=== PATIENT | female | born 1980 | race Caucasian/White ===

== ENCOUNTER 2017-04-15 02:59 | Emergency (ER) | payer MEDICAID, OTHER ==
[~2017-04-15] VITALS: Ht 162.6 cm; Wt 59.0 kg
[~2017-04-15 02:59] MED LIST: CALC1TAB17; DIPH25CA83; FOLI-43; FOLIC ACID; FURO20TA4; HYDR200T35; LOSA25TA12; LOSARTAN; NIFE60TA18; P20; PLAQUENIL; PREDNISONE; SILDENAFIL; SULF1TAB48; TRAM50TA3
[2017-04-15] MEDS ORDERED: SODIUM CHLORIDE 0.9% 1,000 ML IV ONE (03:52)
[2017-04-15 04:12] LABS: BASOPHILS % 0.9 % (0.0-2.0); EOSINOPHILS % 2.1 % (0.0-5.0); HEMATOCRIT. 30.1 % (36.0-48.0); HEMOGLOBIN. 9.9 g/dL (12.0-16.0); LYMPHOCYTES % 23.4 % (20.0-50.0); MEAN CORPUSCULAR HEMOGLOBIN 29.1 pg (28.0-32.0); MEAN CORPUSCULAR HGB CONC 32.9 g/dL (31.0-37.0); MEAN CORPUSCULAR VOLUME 88.6 fL (81.0-99.0); MEAN PLATELET VOLUME 8.9 fl (7.4-10.4); MONOCYTES % 9.5 % (2.0-8.0); NEUTROPHILS % 64.1 % (40.0-76.0); PLATELET 157 x1000/uL (130-400); RED CELL DISTRIBUTION WIDTH 12.5 % (11.6-14.6); WHITE BLOOD COUNT 3.8 x1000/uL (4.5-11.0)
[2017-04-15 04:24] LABS: ALANINE AMINOTRANSFERASE 14 IU/L (13-61); ALBUMIN 3.2 g/dL (3.4-5.0); ANION GAP 12; CALCIUM 8.1 mg/dL (8.5-10.1); CARBON DIOXIDE 24 mEq/L (21-32); CHLORIDE 106 mEq/L (98-107); INDEX HEMOLYSI 1 (1-3); INDEX ICTERIC 1 (1-4); INDEX LIPEMIC 1 (1-3); UREA NITROGEN BLOOD 18 mg/dL (7-21); eGFR > 60 mL/min (>60)
[2017-04-15 07:02] VITALS: BP 109/63
== END 2017-04-15 07:13 | disposition home or self-care (01) ==
LOC: ER 03:00
DX: R53.1 Weakness (principal); R11.0 Nausea; R42 Dizziness and giddiness; H53.2 Diplopia; I10 Essential (primary) hypertension; M32.9 Systemic lupus erythematosus, unspecified; F12.10 Cannabis abuse, uncomplicated; Z90.710 Acquired absence of both cervix and uterus; Z98.890 Other specified postprocedural states; Z88.8 Allergy status to other drugs, medicaments and biological substances
CPT/HCPCS: 36415; 70450; 71010; 80053; 85025; 93005; 96360; 96361; 99285; J7030; Z7610

== ENCOUNTER 2019-09-20 08:20 | Inpatient (IN) | payer MEDICAID ==
[~2019-09-20] VITALS: Ht 157.5 cm; Wt 59.4 kg
[~2019-09-20 08:20] MED LIST changes: -LOSA25TA12; +LOSA25TA26
[2019-09-20 10:17] LABS: EOSINOPHILS % 1.5 % (0.0-5.0); HEMATOCRIT. 25.2 % (36.0-48.0); HEMOGLOBIN. 7.8 g/dL (12.0-16.0); LYMPHOCYTES % 24.4 % (20.0-50.0); MEAN CORPUSCULAR HEMOGLOBIN 21.2 pg (28.0-32.0); MEAN CORPUSCULAR VOLUME 68.7 fL (81.0-99.0); MEAN PLATELET VOLUME 8.3 fl (7.4-10.4); MONOCYTES % 7.2 % (2.0-8.0); NEUTROPHILS % 65.9 % (40.0-76.0); PLATELET 264 x1000/uL (130-400); RED BLOOD CELL COUNT 3.66 mill/uL (4.2-5.4); RED CELL DISTRIBUTION WIDTH 19.2 % (11.6-14.6)
[2019-09-20 10:24] LABS: CHLORIDE 111 mEq/L (98-107)
[2019-09-20 10:25] LABS: HCG SCREEN NEGATIVE
[2019-09-20 11:07] LABS: PLATELET ESTIMATE NORMAL
[2019-09-20] MEDS ORDERED: ONDANSETRON HCL 4MG/2ML INJ IV PRN (14:30)
[2019-09-20] MEDS ORDERED: DOCUSATE SODIUM 100MG CAPSULE PO PRN (14:30)
[2019-09-20] MEDS ORDERED: ACETAMINOPHEN 325MG TABLET PO PRN (14:30)
[2019-09-20] MEDS ORDERED: MAGNESIUM/ALUMINUM HYDROXIDE/SIMETHICONE 30ML UDC PO PRN (14:30)
[2019-09-20] MEDS ORDERED: DIPHENHYDRAMINE 50MG/ML VIAL IV PRN (14:30)
[2019-09-20] MEDS ORDERED: GUAIFENESIN 200MG/10ML SUGAR FREE UDC PO PRN (14:30)
[2019-09-20] MEDS ORDERED: IPRATROPIUM/ALBUTEROL 0.5-3(2.5)MG/3ML NEB HHN PRN (14:30)
[2019-09-20] MEDS ORDERED: CLONIDINE 0.1MG TABLET PO PRN (14:30)
[2019-09-20 17:16] LABS: TOTAL IRON BINDING CAPACITY 362 ug/dL (250-450)
[2019-09-20 18:00] VITALS: BP 136/68
[2019-09-20] MEDS: FUROSEMIDE 40MG/4ML VIAL IVP SCH (18:30)
[2019-09-20] MEDS: CIPROFLOXACIN 0.3% OPHTH SOLN 2.5ML BOTHEYE SCH ×2 (18:30→21:27)
[2019-09-20 20:00] VITALS: BP 120/78
[2019-09-20] MEDS: ENOXAPARIN 40MG/0.4ML SYR SUBCUT SCH (21:27)
[2019-09-20] MEDS: SILDENAFIL CITRATE 20MG TABLET PO SCH (21:28)
[2019-09-21] VITALS: BP 122/79
[2019-09-21 04:00] VITALS: BP 110/59
[2019-09-21] MEDS: SILDENAFIL CITRATE 20MG TABLET PO SCH ×3 (05:56→21:25)
[2019-09-21 07:14] LABS: CHLORIDE 108 mEq/L (98-107)
[2019-09-21 07:23] LABS: BASOPHILS % 0.8 % (0.0-2.0); EOSINOPHILS % 2.3 % (0.0-5.0); HEMOGLOBIN. 8.4 g/dL (12.0-16.0); LDL CHOLESTEROL 66 mg/dL (5-100); LYMPHOCYTES % 18.7 % (20.0-50.0); MEAN CORPUSCULAR HEMOGLOBIN 21.3 pg (28.0-32.0); MEAN CORPUSCULAR VOLUME 68.4 fL (81.0-99.0); MEAN PLATELET VOLUME 8.7 fl (7.4-10.4); NEUTROPHILS % 70.2 % (40.0-76.0); PLATELET 252 x1000/uL (130-400); RED BLOOD CELL COUNT 3.95 mill/uL (4.2-5.4); RED CELL DISTRIBUTION WIDTH 19.1 % (11.6-14.6)
[2019-09-21 07:24] LABS: CREATINE KINASE MB FRACTION < 1.0 ng/mL (0.5-3.6)
[2019-09-21 07:25] LABS: CREATINE KINASE 23 IU/L (26-192); HDL CHOLESTEROL 34 mg/dL (40-59)
[2019-09-21 08:00] VITALS: BP 115/78
[2019-09-21] MEDS: FUROSEMIDE 40MG/4ML VIAL IVP SCH (08:39)
[2019-09-21] MEDS: CIPROFLOXACIN 0.3% OPHTH SOLN 2.5ML BOTHEYE SCH ×4 (08:39→21:25)
[2019-09-21 12:00] VITALS: BP 103/68
[2019-09-21 16:00] VITALS: BP 98/56
[2019-09-21] MEDS ORDERED: PANTOPRAZOLE 40MG DR TABLET PO SCH (17:15)
[2019-09-21] MEDS: POLYETHYLENE GLYCOL 3350 (17GM) 1 DOSE PACK PO SCH (17:31)
[2019-09-21] MEDS: HYDROXYCHLOROQUINE SULFATE 200MG TABLET PO SCH (17:32)
[2019-09-21] MEDS: PREDNISONE 20MG TABLET PO SCH (17:32)
[2019-09-21] MEDS ORDERED: POLYVINYL ALCOHOL OPHTH DROPS 15ML BOTHEYE SCH (19:00)
[2019-09-21 20:00] VITALS: BP 101/61
[2019-09-21] MEDS: ENOXAPARIN 40MG/0.4ML SYR SUBCUT SCH (20:53)
[2019-09-21] MEDS: IPRATROPIUM/ALBUTEROL 0.5-3(2.5)MG/3ML NEB HHN SCH (20:53)
[2019-09-21] MEDS: POLYVINYL ALCOHOL OPHTH DROPS 15ML BOTHEYE SCH (20:53)
[2019-09-21] MEDS: SULFAMETHOXAZOLE/TRIMETHOPRIM 800/160MG TABLET PO SCH (21:25)
[2019-09-21] MEDS: LETAIRIS 10MG TABLET PO SCH (21:25)
[2019-09-21 22:42] LABS: *BARBITURATES SCREEN URINE NEGATIVE (NEGATIVE); *BENZODIAZEPINES SCREEN URINE NEGATIVE (NEGATIVE); *COCAINE SCREEN URINE NEGATIVE (NEGATIVE); CANNABINOID URINE SCREEN NEGATIVE (NEGATIVE); PHENCYCLIDINE URINE SCREEN NEGATIVE (NEGATIVE)
[2019-09-21 22:43] LABS: METHADONE URINE SCREEN NEGATIVE (NEGATIVE); OPIATES URINE SCREEN NEGATIVE (NEGATIVE)
[2019-09-21 22:44] LABS: *AMPHETAMINES SCREEN URINE PRESUMTIVE POSITIVE (NEGATIVE)
[2019-09-22] VITALS: BP 105/68
[2019-09-22] MEDS: POLYVINYL ALCOHOL OPHTH DROPS 15ML BOTHEYE SCH ×4 (00:21→18:51)
[2019-09-22] MEDS: IPRATROPIUM/ALBUTEROL 0.5-3(2.5)MG/3ML NEB HHN SCH ×4 (02:00→21:05)
[2019-09-22 04:00] VITALS: BP 107/69
[2019-09-22] MEDS: SILDENAFIL CITRATE 20MG TABLET PO SCH ×3 (06:12→20:55)
[2019-09-22] MEDS: PANTOPRAZOLE 40MG DR TABLET PO SCH (06:12)
[2019-09-22 08:00] VITALS: BP 97/45
[2019-09-22] MEDS: POLYETHYLENE GLYCOL 3350 (17GM) 1 DOSE PACK PO SCH (09:00)
[2019-09-22 10:37] LABS: BASOPHILS % 0.2 % (0.0-2.0); EOSINOPHILS % 0.1 % (0.0-5.0); HEMOGLOBIN. 7.9 g/dL (12.0-16.0); LYMPHOCYTES % 23.9 % (20.0-50.0); MEAN CORPUSCULAR HEMOGLOBIN 21.1 pg (28.0-32.0); MEAN CORPUSCULAR VOLUME 69.1 fL (81.0-99.0); MEAN PLATELET VOLUME 9.2 fl (7.4-10.4); MONOCYTES % 3.8 % (2.0-8.0); PLATELET 259 x1000/uL (130-400); RED BLOOD CELL COUNT 3.77 mill/uL (4.2-5.4); RED CELL DISTRIBUTION WIDTH 19.1 % (11.6-14.6)
[2019-09-22 10:43] LABS: CHLORIDE 106 mEq/L (98-107)
[2019-09-22] MEDS: HYDROXYCHLOROQUINE SULFATE 200MG TABLET PO SCH ×2 (10:53→18:50)
[2019-09-22] MEDS: PREDNISONE 20MG TABLET PO SCH (10:53)
[2019-09-22] MEDS: FUROSEMIDE 40MG/4ML VIAL IVP SCH (10:54)
[2019-09-22] MEDS: LETAIRIS 10MG TABLET PO SCH (10:54)
[2019-09-22] MEDS: CIPROFLOXACIN 0.3% OPHTH SOLN 2.5ML BOTHEYE SCH ×4 (10:56→20:56)
[2019-09-22 12:00] VITALS: BP 111/62
[2019-09-22] MEDS ORDERED: FERR-71 MT (13:55)
[2019-09-22] MEDS: SULFAMETHOXAZOLE/TRIMETHOPRIM 800/160MG TABLET PO SCH ×2 (14:39→20:55)
[2019-09-22 16:00] VITALS: BP 101/49
[2019-09-22 20:43] VITALS: BP 112/63
[2019-09-22] MEDS: ENOXAPARIN 40MG/0.4ML SYR SUBCUT SCH (20:55)
[2019-09-23] VITALS: BP 109/67
[2019-09-23] MEDS: POLYVINYL ALCOHOL OPHTH DROPS 15ML BOTHEYE SCH ×4 (00:27→17:19)
[2019-09-23] MEDS: IPRATROPIUM/ALBUTEROL 0.5-3(2.5)MG/3ML NEB HHN SCH ×2 (01:51→09:30)
[2019-09-23 04:00] VITALS: BP 108/73
[2019-09-23] MEDS: PANTOPRAZOLE 40MG DR TABLET PO SCH (06:11)
[2019-09-23] MEDS: SILDENAFIL CITRATE 20MG TABLET PO SCH ×2 (06:11→15:23)
[2019-09-23 08:00] VITALS: BP 100/64
[2019-09-23] MEDS: PREDNISONE 20MG TABLET PO SCH (09:44)
[2019-09-23] MEDS: HYDROXYCHLOROQUINE SULFATE 200MG TABLET PO SCH ×2 (09:44→17:22)
[2019-09-23] MEDS: FUROSEMIDE 40MG/4ML VIAL IVP SCH (09:44)
[2019-09-23] MEDS: SULFAMETHOXAZOLE/TRIMETHOPRIM 800/160MG TABLET PO SCH (09:44)
[2019-09-23] MEDS: LETAIRIS 10MG TABLET PO SCH (09:44)
[2019-09-23] MEDS: CIPROFLOXACIN 0.3% OPHTH SOLN 2.5ML BOTHEYE SCH ×3 (09:45→17:19)
[2019-09-23] MEDS: POLYETHYLENE GLYCOL 3350 (17GM) 1 DOSE PACK PO SCH (09:45)
[2019-09-23 12:00] VITALS: BP 117/70
== END 2019-09-23 19:25 | disposition home or self-care (01) | DRG 812 ==
LOC: ER 08:20 → 6WST 12:45 → ENRESERV 14:11
PROVIDERS: ADMIT Internal Medicine; ATTEND Internal Medicine
DX: T43.621A Poisoning by amphetamines, accidental (unintentional), initial encounter (principal); J96.20 Acute and chronic respiratory failure, unspecified whether with hypoxia or hypercapnia; I50.23 Acute on chronic systolic (congestive) heart failure; I27.20 Pulmonary hypertension, unspecified; M32.9 Systemic lupus erythematosus, unspecified; J68.0 Bronchitis and pneumonitis due to chemicals, gases, fumes and vapors; Y92.89 Other specified places as the place of occurrence of the external cause; Z99.81 Dependence on supplemental oxygen; H54.62 Unqualified visual loss, left eye, normal vision right eye; F15.10 Other stimulant abuse, uncomplicated; F12.10 Cannabis abuse, uncomplicated; K59.00 Constipation, unspecified; D63.8 Anemia in other chronic diseases classified elsewhere; I11.0 Hypertensive heart disease with heart failure; K21.9 Gastro-esophageal reflux disease without esophagitis; Z90.710 Acquired absence of both cervix and uterus; Z98.891 History of uterine scar from previous surgery
CPT/HCPCS: 36415; 71045; 80048; 80061; 80305; 82270; 82550; 82553; 82728; 83540; 83550; 83735; 83880; 84100; 84443; 84484; 84703; 85044; 85379; 85651; 93005; 93306; 93970; 99285; J1650; J1940; J7512; J7620

== ENCOUNTER 2019-12-05 20:45 | Emergency (ER) | payer MEDICAID ==
[~2019-12-05] VITALS: Ht 157.5 cm; Wt 62.0 kg
[~2019-12-05 20:45] MED LIST changes: +FERR-71 MT
[2019-12-05] MEDS ORDERED: IBUPROFEN 600MG TABLET PO STA (22:11)
[2019-12-05 23:31] LABS: BASOPHILS % 0.5 % (0.0-2.0); HEMATOCRIT. 26.6 % (36.0-48.0); HEMOGLOBIN. 8.5 g/dL (12.0-16.0); MEAN PLATELET VOLUME 8.4 fl (7.4-10.4); NEUTROPHILS % 65.5 % (40.0-76.0); PLATELET 221 x1000/uL (130-400); RED BLOOD CELL COUNT 3.41 mill/uL (4.2-5.4); RED CELL DISTRIBUTION WIDTH 24.5 % (11.6-14.6)
[2019-12-05 23:35] LABS: CHLORIDE 113 mEq/L (98-107)
[2019-12-05 23:36] LABS: D-DIMER 1.73 mg/L FEU (<0.50); PROTHROMBIN TIME 9.8 sec (9.6-11.0)
[2019-12-05 23:37] LABS: HCG SCREEN NEGATIVE
[2019-12-06] MEDS ORDERED: FUROSEMIDE 20MG/2ML VIAL IVP ONE (00:15)
[2019-12-06] MEDS ORDERED: ASPIRIN 325MG EC TABLET PO ONE (00:15)
[2019-12-06] MEDS ORDERED: CLONIDINE 0.1MG TABLET PO PRN (00:45)
[2019-12-06] MEDS ORDERED: ONDANSETRON HCL 4MG/2ML INJ IV PRN (00:45)
[2019-12-06] MEDS ORDERED: IPRATROPIUM/ALBUTEROL 0.5-3(2.5)MG/3ML NEB NEB PRN (00:45)
[2019-12-06] MEDS ORDERED: HYDROCODONE/ACETAMINOPHEN 5/325MG TABLET PO PRN (00:45)
[2019-12-06] MEDS ORDERED: DOCUSATE SODIUM 100MG CAPSULE PO PRN (00:45)
[2019-12-06] MEDS ORDERED: ACETAMINOPHEN 325MG TABLET PO PRN (00:45)
[2019-12-06] MEDS ORDERED: MORPHINE SULFATE 2 MG/ML CPJ (NOT FOR IM USE) IV PRN (00:45)
[2019-12-06] MEDS ORDERED: MAGNESIUM/ALUMINUM HYDROXIDE/SIMETHICONE 30ML UDC PO PRN (00:45)
[2019-12-06] MEDS ORDERED: GUAIFENESIN 200MG/10ML SUGAR FREE UDC PO PRN (00:45)
[2019-12-06 00:49] LABS: PLATELET ESTIMATE NORMAL
[2019-12-06 01:38] LABS: *BARBITURATES SCREEN URINE NEGATIVE (NEGATIVE); *BENZODIAZEPINES SCREEN URINE NEGATIVE (NEGATIVE); *COCAINE SCREEN URINE NEGATIVE (NEGATIVE); METHADONE URINE SCREEN NEGATIVE (NEGATIVE)
[2019-12-06 01:39] LABS: CANNABINOID URINE SCREEN NEGATIVE (NEGATIVE); OPIATES URINE SCREEN NEGATIVE (NEGATIVE); PHENCYCLIDINE URINE SCREEN NEGATIVE (NEGATIVE)
[2019-12-06 01:43] LABS: *AMPHETAMINES SCREEN URINE PRESUMTIVE POSITIVE (NEGATIVE)
[2019-12-06] MEDS ORDERED: IOHEXOL-350 100 ML BOTTLE ONE (03:04)
[2019-12-06 07:45] VITALS: BP 107/74
[2019-12-06] MEDS ORDERED: ASPIRIN 81MG EC TABLET PO SCH (09:00)
[2019-12-06] MEDS ORDERED: FUROSEMIDE 40MG/4ML VIAL IV SCH (09:00)
== END 2019-12-06 09:33 | disposition left against medical advice (07) ==
LOC: ER 20:45 → EDBEDREQ 12-06 00:11 → EDBEDREQTM 12-06 00:11 → ENRESERV 12-06 08:54 → CANRESERV 12-06 08:54 → ER 12-06 09:33 → CANBEDREQ 12-06 16:18
DX: I11.0 Hypertensive heart disease with heart failure (principal); I50.9 Heart failure, unspecified; Z98.890 Other specified postprocedural states; Z90.710 Acquired absence of both cervix and uterus; F12.10 Cannabis abuse, uncomplicated; F15.10 Other stimulant abuse, uncomplicated; I24.9 Acute ischemic heart disease, unspecified; M79.89 Other specified soft tissue disorders; D64.9 Anemia, unspecified; Z79.899 Other long term (current) drug therapy; Z88.8 Allergy status to other drugs, medicaments and biological substances
CPT/HCPCS: 36415; 71045; 71275; 80053; 80305; 82550; 83880; 84484; 84703; 85025; 85379; 85610; 93005; 93970; 96374; 99284; J1940; Q9967; Z7610

== ENCOUNTER 2021-05-05 09:26 | Emergency (ER) | payer MEDICAID ==
[~2021-05-05] VITALS: Ht 157.5 cm; Wt 56.7 kg
[2021-05-05 09:27] VITALS: BP 132/81
== END 2021-05-05 09:52 | disposition left against medical advice (07) ==
LOC: ER 09:26
DX: F41.9 Anxiety disorder, unspecified (principal); Z53.21 Procedure and treatment not carried out due to patient leaving prior to being seen by health care provider
CPT/HCPCS: 93005

== ENCOUNTER 2023-01-21 19:30 | Inpatient (IN) | payer MEDICAID ==
[~2023-01-21] VITALS: Ht 157.5 cm; Wt 52.2 kg
[~2023-01-21 19:30] MED LIST changes: -FOLI-43; +FOLI-43 PO; -NIFE60TA18; +NIFE60TA18 PO
[2023-01-22] VITALS (10 sets, daily range): BP systolic 116–184; BP diastolic 76–108
[2023-01-22 01:16] LABS: BASOPHILS % 0.1 % (0.0-2.0); EOSINOPHILS % 0.2 % (0.0-5.0); HEMATOCRIT. 27.8 % (36.0-48.0); HEMOGLOBIN. 8.7 g/dL (12.0-16.0); LYMPHOCYTES % 12.6 % (20.0-50.0); MEAN CORPUSCULAR HEMOGLOBIN 31.9 pg (28.0-32.0); MEAN CORPUSCULAR VOLUME 102.1 fL (81.0-99.0); MEAN PLATELET VOLUME 9.5 fl (7.4-10.4); MONOCYTES % 5.6 % (2.0-8.0); NEUTROPHILS % 81.5 % (40.0-76.0); PLATELET 149 x1000/uL (130-400); RED BLOOD CELL COUNT 2.72 mill/uL (4.2-5.4); RED CELL DISTRIBUTION WIDTH 19.1 % (11.6-14.6)
[2023-01-22 01:23] LABS: CHLORIDE 100 mEq/L (98-107)
[2023-01-22 03:50] LABS: BASOPHILS % 0.1 % (0.0-2.0); EOSINOPHILS % 0.5 % (0.0-5.0); HEMATOCRIT. 27.5 % (36.0-48.0); HEMOGLOBIN. 8.5 g/dL (12.0-16.0); MEAN CORPUSCULAR HEMOGLOBIN 31.4 pg (28.0-32.0); MEAN CORPUSCULAR VOLUME 100.8 fL (81.0-99.0); MEAN PLATELET VOLUME 9.6 fl (7.4-10.4); MONOCYTES % 4.5 % (2.0-8.0); NEUTROPHILS % 81.9 % (40.0-76.0); PLATELET 143 x1000/uL (130-400); RED BLOOD CELL COUNT 2.72 mill/uL (4.2-5.4); RED CELL DISTRIBUTION WIDTH 18.9 % (11.6-14.6)
[2023-01-22 04:22] LABS: CHLORIDE 101 mEq/L (98-107)
[2023-01-22] MEDS ORDERED: MORPHINE SULFATE 4 MG/ML CPJ (NOT FOR IM USE) IV ONE (04:45)
[2023-01-22] MEDS ORDERED: ONDANSETRON HCL 4MG/2ML INJ IV PRN (11:00)
[2023-01-22] MEDS ORDERED: IPRATROPIUM/ALBUTEROL 0.5-3(2.5)MG/3ML NEB HHN PRN (11:00)
[2023-01-22] MEDS ORDERED: ACETAMINOPHEN 325MG TABLET PO PRN ×2 (11:00)
[2023-01-22] MEDS ORDERED: CLONIDINE 0.1MG TABLET PO PRN (11:00)
[2023-01-22] MEDS ORDERED: ATOR80TA PO (11:14)
[2023-01-22] MEDS ORDERED: DOCU-138 PO (11:14)
[2023-01-22] MEDS ORDERED: LACT10SO30 MT (11:14)
[2023-01-22] MEDS ORDERED: FERR210T PO (11:14)
[2023-01-22] MEDS ORDERED: METO-396 PO (11:14)
[2023-01-22] MEDS ORDERED: SILD20TA PO (11:14)
[2023-01-22] MEDS ORDERED: AMBR10TA3 PO (11:14)
[2023-01-22] MEDS ORDERED: SODI10PO PO (11:14)
[2023-01-22] MEDS ORDERED: ALBUTEROL (0.083%) 2.5MG/3ML NEB HHN PRN (11:15)
[2023-01-22] MEDS ORDERED: IPRATROPIUM BROMIDE (0.02%) 0.5MG/2.5ML NEB HHN PRN (11:15)
[2023-01-22] MEDS: ENOXAPARIN 30MG/0.3ML SYR SUBCUT SCH (11:59)
[2023-01-22] MEDS ORDERED: PREDNISONE 10MG TABLET PO NR (13:00)
[2023-01-22] MEDS: SILDENAFIL CITRATE 20MG TABLET PO SCH ×2 (15:13→17:00)
[2023-01-22] MEDS: NIFEDIPINE XL 30MG TAB PO SCH ×2 (15:13→21:04)
[2023-01-22] MEDS: FERROUS SULFATE 325MG TABLET PO SCH ×2 (15:15→17:00)
[2023-01-22] MEDS: METOPROLOL SUCCINATE 50MG ER TABLET PO SCH (17:54)
[2023-01-22] MEDS: GUAIFENESIN 200MG/10ML SUGAR FREE UDC PO PRN (17:55)
[2023-01-22] MEDS ORDERED: NITROGLYCERIN 0.4MG TABLET SL SL PRN (18:45)
[2023-01-22] MEDS ORDERED: NALOXONE HCL 0.4MG/ML VIAL IV PRN (18:45)
[2023-01-22] MEDS ORDERED: MORPHINE SULFATE 2 MG/ML CPJ (NOT FOR IM USE) IV PRN (18:45)
[2023-01-22] MEDS: AMBRISENTAN 10MG TABLET PO SCH (19:46)
[2023-01-22] MEDS ORDERED: FAMOTIDINE 20MG TABLET PO SCH (21:00)
[2023-01-22] MEDS ORDERED: EPOETIN ALFA-EPBX 4,000 UNIT/ML VIAL SUBCUT SCH (21:00)
[2023-01-22] MEDS ORDERED: ATORVASTATIN CALCIUM 40MG TABLET PO SCH (21:00)
[2023-01-23] VITALS (10 sets, daily range): BP systolic 115–185; BP diastolic 70–95
[2023-01-23 02:27] LABS: CREATINE KINASE MB FRACTION 2.3 ng/mL (0.5-3.6)
[2023-01-23] MEDS: GUAIFENESIN 200MG/10ML SUGAR FREE UDC PO PRN ×2 (05:21→13:40)
[2023-01-23] MEDS: NIFEDIPINE XL 30MG TAB PO SCH ×2 (05:22→13:37)
[2023-01-23 07:34] LABS: BASOPHILS % 0.2 % (0.0-2.0); EOSINOPHILS % 0.1 % (0.0-5.0); HEMATOCRIT. 23.7 % (36.0-48.0); HEMOGLOBIN. 7.1 g/dL (12.0-16.0); LYMPHOCYTES % 11.8 % (20.0-50.0); MEAN CORPUSCULAR HEMOGLOBIN 30.8 pg (28.0-32.0); MEAN CORPUSCULAR VOLUME 103.3 fL (81.0-99.0); MEAN PLATELET VOLUME 10.2 fl (7.4-10.4); MONOCYTES % 7.8 % (2.0-8.0); NEUTROPHILS % 80.1 % (40.0-76.0); PLATELET 127 x1000/uL (130-400); RED BLOOD CELL COUNT 2.29 mill/uL (4.2-5.4); RED CELL DISTRIBUTION WIDTH 20.1 % (11.6-14.6)
[2023-01-23 07:39] LABS: CHLORIDE 105 mEq/L (98-107)
[2023-01-23 07:53] LABS: HDL CHOLESTEROL 38 mg/dL (40-59); LDL CHOLESTEROL 42 mg/dL (5-100); T4 FREE 0.95 ng/dL (0.76-1.46)
[2023-01-23 08:34] LABS: HEPATITIS B SURFACE ANTIGEN NEGATIVE
[2023-01-23] MEDS: SILDENAFIL CITRATE 20MG TABLET PO SCH ×2 (09:00→13:00)
[2023-01-23] MEDS ORDERED: PREDNISONE 20MG TABLET PO NR (09:00)
[2023-01-23] MEDS: AMBRISENTAN 10MG TABLET PO SCH (09:00)
[2023-01-23] MEDS ORDERED: DOCUSATE SODIUM 100MG CAPSULE PO SCH (09:00)
[2023-01-23] MEDS: METOPROLOL SUCCINATE 50MG ER TABLET PO SCH (09:00)
[2023-01-23] MEDS: FERROUS SULFATE 325MG TABLET PO SCH ×2 (09:00→13:40)
[2023-01-23] MEDS ORDERED: FOLIC ACID 1MG TABLET PO SCH (09:00)
[2023-01-23] MEDS: ENOXAPARIN 30MG/0.3ML SYR SUBCUT SCH (12:00)
[2023-01-24] MEDS ORDERED: PREDNISONE 5MG TABLET PO NR (09:00)
[2023-01-24] MEDS ORDERED: EPOETIN ALFA-EPBX 4,000 UNIT/ML VIAL SUBCUT SCH (21:00)
[2023-01-25] MEDS ORDERED: PREDNISONE 10MG TABLET PO NR (09:00)
[2023-01-26] MEDS ORDERED: PREDNISONE 10MG TABLET PO NR (09:00)
== END 2023-01-23 16:50 | disposition home or self-care (01) | DRG 194 ==
LOC: ER 19:30 → 7WST 01-22 02:40 → EDBEDREQSVC 01-22 07:44
PROVIDERS: ADMIT Internal Medicine; ATTEND Internal Medicine
PROC: 5A1D70Z Performance of Urinary Filtration, Intermittent, Less than 6 Hours Per Day (ICD-10-PCS; principal; 2023-01-22)
PROC: 5A1D70Z Performance of Urinary Filtration, Intermittent, Less than 6 Hours Per Day (ICD-10-PCS; 2023-01-23)
DX: I13.2 Hypertensive heart and chronic kidney disease with heart failure and with stage 5 chronic kidney disease, or end stage renal disease (principal); D61.818 Other pancytopenia; D84.9 Immunodeficiency, unspecified; I27.20 Pulmonary hypertension, unspecified; N18.6 End stage renal disease; D63.1 Anemia in chronic kidney disease; E78.5 Hyperlipidemia, unspecified; I50.9 Heart failure, unspecified; M32.9 Systemic lupus erythematosus, unspecified; Z20.822 Contact with and (suspected) exposure to COVID-19; M35.00 Sjogren syndrome, unspecified; F19.10 Other psychoactive substance abuse, uncomplicated; Z91.15 Patient's noncompliance with renal dialysis; Z87.891 Personal history of nicotine dependence; Z90.710 Acquired absence of both cervix and uterus; Z99.2 Dependence on renal dialysis; Z99.81 Dependence on supplemental oxygen; Z79.899 Other long term (current) drug therapy; Z98.891 History of uterine scar from previous surgery; Z88.8 Allergy status to other drugs, medicaments and biological substances
CPT/HCPCS: 36415; 71045; 80053; 80061; 82550; 82553; 83880; 84439; 84443; 84484; 85025; 86803; 87340; 87426; 90935; 93005; 93306; 99291; C9803; J0885; J1650; J2270; J7512

== ENCOUNTER 2023-01-30 16:41 | Inpatient (IN) | payer MEDICAID ==
[~2023-01-30] VITALS: Ht 157.5 cm; Wt 53.5 kg
[~2023-01-30 16:41] MED LIST changes: +AMBR10TA3 PO; +ATOR80TA PO; -CALC1TAB17; -DIPH25CA83; +DOCU-138 PO; +FERR210T PO; -FOLIC ACID; -FURO20TA4; -HYDR200T35; +LACT10SO30 MT; -LOSA25TA26; -LOSARTAN; +METO-396 PO; -PLAQUENIL; -PREDNISONE; +SILD20TA PO; -SILDENAFIL; +SODI10PO PO; -SULF1TAB48; -TRAM50TA3
[2023-01-30] MEDS ORDERED: VISCOUS LIDOCAINE 2% 15 ML UDC PO STA (17:51)
[2023-01-30] MEDS ORDERED: MAGNESIUM/ALUMINUM HYDROXIDE/SIMETHICONE 30ML UDC PO STA (17:51)
[2023-01-30] MEDS ORDERED: FAMOTIDINE 20MG TABLET PO ONE (18:00)
[2023-01-30 18:52] LABS: BASOPHILS % 0.7 % (0.0-2.0); HEMATOCRIT. 25.9 % (36.0-48.0); HEMOGLOBIN. 7.8 g/dL (12.0-16.0); LYMPHOCYTES % 7.4 % (20.0-50.0); MONOCYTES % 2.7 % (2.0-8.0); NEUTROPHILS % 88.2 % (40.0-76.0); PLATELET 128 x1000/uL (130-400); RED BLOOD CELL COUNT 2.51 mill/uL (4.2-5.4); RED CELL DISTRIBUTION WIDTH 17.4 % (11.6-14.6)
[2023-01-30 19:02] LABS: CHLORIDE 104 mEq/L (98-107)
[2023-01-30] MEDS ORDERED: MORPHINE SULFATE 4 MG/ML CPJ (NOT FOR IM USE) IV ONE (19:15)
[2023-01-30] MEDS ORDERED: PREDNISONE 20MG TABLET PO ONE (20:00)
[2023-01-30] MEDS ORDERED: LABETALOL 5MG/ML SYR 20 MG/4 ML SYRINGE IV ONE (21:00)
[2023-01-31] VITALS (15 sets, daily range): BP systolic 100–142; BP diastolic 60–89
[2023-01-31] MEDS ORDERED: MAGNESIUM/ALUMINUM HYDROXIDE/SIMETHICONE 30ML UDC PO PRN
[2023-01-31] MEDS ORDERED: DOCUSATE SODIUM 100MG CAPSULE PO PRN
[2023-01-31] MEDS ORDERED: ONDANSETRON HCL 4MG/2ML INJ IV PRN
[2023-01-31] MEDS ORDERED: ACETAMINOPHEN 325MG TABLET PO PRN ×2
[2023-01-31] MEDS ORDERED: IPRATROPIUM/ALBUTEROL 0.5-3(2.5)MG/3ML NEB HHN PRN
[2023-01-31] MEDS ORDERED: CLONIDINE 0.1MG TABLET PO PRN
[2023-01-31] MEDS ORDERED: LACTULOSE ENEMA 1,000ML BOTTLE PR PRN (00:30)
[2023-01-31] MEDS ORDERED: METHYLPREDNISOLONE SOD SUCC 40 MG/ML VIAL IV NR (01:00)
[2023-01-31] MEDS ORDERED: LACTULOSE 20G/30ML UDC PO PRN (01:00)
[2023-01-31] MEDS ORDERED: NALOXONE HCL 0.4MG/ML VIAL IV PRN (01:00)
[2023-01-31 01:46] LABS: TOTAL IRON BINDING CAPACITY 163 ug/dL (250-450)
[2023-01-31] MEDS: MORPHINE SULFATE 2 MG/ML CPJ (NOT FOR IM USE) IV PRN ×2 (02:01→13:30)
[2023-01-31 06:49] LABS: HEMATOCRIT. 24.6 % (36.0-48.0); HEMOGLOBIN. 7.5 g/dL (12.0-16.0); MEAN CORPUSCULAR HEMOGLOBIN 30.8 pg (28.0-32.0); MEAN CORPUSCULAR VOLUME 101.2 fL (81.0-99.0); MEAN PLATELET VOLUME 9.2 fl (7.4-10.4); PLATELET 115 x1000/uL (130-400); RED BLOOD CELL COUNT 2.43 mill/uL (4.2-5.4); RED CELL DISTRIBUTION WIDTH 16.9 % (11.6-14.6)
[2023-01-31 06:52] LABS: CHLORIDE 99 mEq/L (98-107)
[2023-01-31 07:02] LABS: CREATINE KINASE MB FRACTION 1.5 ng/mL (0.5-3.6)
[2023-01-31 07:09] LABS: HDL CHOLESTEROL 32 mg/dL (40-59); LDL CHOLESTEROL 36 mg/dL (5-100); T4 FREE 0.92 ng/dL (0.76-1.46)
[2023-01-31 07:38] LABS: PLATELET ESTIMATE SLIGHTLY DECREASED
[2023-01-31] MEDS ORDERED: METOPROLOL SUCCINATE 50MG ER TABLET PO SCH (09:00)
[2023-01-31] MEDS: PANTOPRAZOLE SODIUM 40 MG/VIAL IV SCH (09:00)
[2023-01-31] MEDS ORDERED: NIFEDIPINE 30 MG PO SCH (09:00)
[2023-01-31] MEDS: FERROUS SULFATE 325MG TABLET PO SCH ×3 (09:00→18:57)
[2023-01-31] MEDS ORDERED: MEDICATION NOT ON FORMULARY EA (Metoprolol Succinate 25 MG) PO SCH (09:00)
[2023-01-31] MEDS: FOLIC ACID 1MG TABLET PO SCH (09:00)
[2023-01-31] MEDS: METOPROLOL TARTRATE 25MG TABLET PO SCH ×2 (09:00→21:00)
[2023-01-31] MEDS: SILDENAFIL CITRATE 20MG TABLET PO SCH ×3 (09:00→18:57)
[2023-01-31 16:02] LABS: CREATINE KINASE MB FRACTION 2.2 ng/mL (0.5-3.6)
[2023-01-31 16:29] LABS: HEPATITIS B SURFACE ANTIGEN NEGATIVE
[2023-01-31] MEDS ORDERED: MEDICATION NOT ON FORMULARY EA (Atorvastatin Calcium (Lipitor) 80 MG) PO SCH (21:00)
[2023-01-31] MEDS: ATORVASTATIN CALCIUM 40MG TABLET PO SCH (21:31)
[2023-01-31 22:13] LABS: CREATINE KINASE 54 IU/L (26-192)
[2023-02-01] VITALS: BP 120/70
[2023-02-01 01:21] LABS: CREATINE KINASE 33 IU/L (26-192)
[2023-02-01 04:00] VITALS: BP 154/80
[2023-02-01] MEDS: NIFEDIPINE XL 30MG TAB PO SCH ×3 (06:59→21:22)
[2023-02-01 07:08] LABS: HEMATOCRIT. 24.4 % (36.0-48.0); HEMOGLOBIN. 7.7 g/dL (12.0-16.0); MEAN CORPUSCULAR HEMOGLOBIN 31.4 pg (28.0-32.0); MEAN CORPUSCULAR VOLUME 100.1 fL (81.0-99.0); MEAN PLATELET VOLUME 10.1 fl (7.4-10.4); PLATELET 148 x1000/uL (130-400); RED BLOOD CELL COUNT 2.44 mill/uL (4.2-5.4); RED CELL DISTRIBUTION WIDTH 16.8 % (11.6-14.6)
[2023-02-01 07:17] LABS: CHLORIDE 104 mEq/L (98-107)
[2023-02-01 07:26] LABS: CREATINE KINASE 27 IU/L (26-192)
[2023-02-01 08:00] VITALS: BP 144/74
[2023-02-01] MEDS: METOPROLOL TARTRATE 25MG TABLET PO SCH ×2 (08:18→21:22)
[2023-02-01] MEDS: FOLIC ACID 1MG TABLET PO SCH (08:18)
[2023-02-01] MEDS: PANTOPRAZOLE SODIUM 40 MG/VIAL IV SCH (08:19)
[2023-02-01] MEDS: SILDENAFIL CITRATE 20MG TABLET PO SCH ×3 (08:19→18:08)
[2023-02-01] MEDS: FERROUS SULFATE 325MG TABLET PO SCH ×2 (08:19→12:58)
[2023-02-01 08:58] LABS: PLATELET ESTIMATE NORMAL
[2023-02-01] MEDS: GUAIFENESIN 200MG/10ML SUGAR FREE UDC PO PRN ×2 (10:11→21:20)
[2023-02-01 12:00] VITALS: BP 142/86
[2023-02-01] MEDS ORDERED: AMBRISENTAN (LETAIRIS) 10 MG TABLET PO SCH (15:00)
[2023-02-01] MEDS: AMBRISENTAN 10MG TABLET PO SCH (15:25)
[2023-02-01 16:00] VITALS: BP 137/76
[2023-02-01] MEDS: METHYLPREDNISOLONE SOD SUCC 40 MG/ML VIAL IV SCH (16:34)
[2023-02-01] MEDS: AURYXIA 210MG TABLET PO SCH (18:08)
[2023-02-01] MEDS: MORPHINE SULFATE 2 MG/ML CPJ (NOT FOR IM USE) IV PRN (19:03)
[2023-02-01 20:00] VITALS: BP 135/73
[2023-02-01] MEDS: ATORVASTATIN CALCIUM 40MG TABLET PO SCH (21:20)
[2023-02-02] VITALS (18 sets, daily range): BP systolic 99–151; BP diastolic 50–90
[2023-02-02 06:36] LABS: BASOPHILS % 0.2 % (0.0-2.0); EOSINOPHILS % 0.1 % (0.0-5.0); HEMATOCRIT. 25.6 % (36.0-48.0); HEMOGLOBIN. 7.9 g/dL (12.0-16.0); LYMPHOCYTES % 20.5 % (20.0-50.0); MEAN CORPUSCULAR HEMOGLOBIN 30.8 pg (28.0-32.0); MEAN CORPUSCULAR VOLUME 100.2 fL (81.0-99.0); MEAN PLATELET VOLUME 9.5 fl (7.4-10.4); MONOCYTES % 5.7 % (2.0-8.0); NEUTROPHILS % 73.5 % (40.0-76.0); PLATELET 140 x1000/uL (130-400); RED BLOOD CELL COUNT 2.55 mill/uL (4.2-5.4); RED CELL DISTRIBUTION WIDTH 16.6 % (11.6-14.6)
[2023-02-02] MEDS: NIFEDIPINE XL 30MG TAB PO SCH ×3 (06:53→21:40)
[2023-02-02] MEDS: SILDENAFIL CITRATE 20MG TABLET PO SCH ×3 (08:16→17:00)
[2023-02-02] MEDS: PANTOPRAZOLE SODIUM 40 MG/VIAL IV SCH (08:16)
[2023-02-02] MEDS: AURYXIA 210MG TABLET PO SCH ×3 (08:17→16:59)
[2023-02-02] MEDS: FOLIC ACID 1MG TABLET PO SCH (08:17)
[2023-02-02] MEDS: AMBRISENTAN 10MG TABLET PO SCH (08:17)
[2023-02-02] MEDS: METOPROLOL TARTRATE 25MG TABLET PO SCH ×2 (08:17→21:42)
[2023-02-02] MEDS ORDERED: SODIUM POLYSTYRENE SULFONATE 15 G/60 ML BOT PO NR (09:45)
[2023-02-02] MEDS ORDERED: SODIUM POLYSTYRENE SULFONATE 15 G/60 ML BOT ONE (09:46)
[2023-02-02] MEDS: MORPHINE SULFATE 2 MG/ML CPJ (NOT FOR IM USE) IV PRN (12:56)
[2023-02-02] MEDS: GUAIFENESIN 200MG/10ML SUGAR FREE UDC PO PRN ×2 (12:58→21:39)
[2023-02-02] MEDS: METHYLPREDNISOLONE SOD SUCC 40 MG/ML VIAL IV SCH (16:54)
[2023-02-02] MEDS: ATORVASTATIN CALCIUM 40MG TABLET PO SCH (21:39)
[2023-02-03] MEDS ORDERED: EPOETIN ALFA-EPBX 4,000 UNIT/ML VIAL SUBCUT SCH (21:00)
== END 2023-02-03 03:13 | disposition home or self-care (01) | DRG 243 ==
LOC: ER 16:49 → SUPCPDRO 19:47 → EDBEDREQTM 23:09 → EDBEDREQ 23:09 → 3WST 01-31 00:02 → ENRESERV 01-31 15:45
PROVIDERS: ADMIT Internal Medicine; ATTEND Internal Medicine
PROC: 5A1D70Z Performance of Urinary Filtration, Intermittent, Less than 6 Hours Per Day (ICD-10-PCS; principal; 2023-01-31)
PROC: 5A1D70Z Performance of Urinary Filtration, Intermittent, Less than 6 Hours Per Day (ICD-10-PCS; 2023-02-02)
DX: K21.9 Gastro-esophageal reflux disease without esophagitis (principal); D61.818 Other pancytopenia; I13.2 Hypertensive heart and chronic kidney disease with heart failure and with stage 5 chronic kidney disease, or end stage renal disease; I27.20 Pulmonary hypertension, unspecified; M32.9 Systemic lupus erythematosus, unspecified; I20.0 Unstable angina; N18.6 End stage renal disease; D63.1 Anemia in chronic kidney disease; Z99.81 Dependence on supplemental oxygen; Z20.822 Contact with and (suspected) exposure to COVID-19; E87.5 Hyperkalemia; I16.0 Hypertensive urgency; I50.32 Chronic diastolic (congestive) heart failure; E78.5 Hyperlipidemia, unspecified; I07.1 Rheumatic tricuspid insufficiency; H35.00 Unspecified background retinopathy; Z91.15 Patient's noncompliance with renal dialysis; Z99.2 Dependence on renal dialysis; Z79.899 Other long term (current) drug therapy; Z90.710 Acquired absence of both cervix and uterus; Z98.891 History of uterine scar from previous surgery
CPT/HCPCS: 36415; 71045; 80048; 80053; 80061; 82550; 82553; 82728; 83036; 83540; 83550; 83880; 84439; 84443; 84481; 84484; 85025; 86705; 86709; 86803; 87340; 90935; 93005; 93970; 99291; C9113; J2270; J2920; J3490; J7512